=== PATIENT | male | born 1950 | race Caucasian/White ===

== ENCOUNTER 2018-12-23 12:51 | Outpatient (CLI) | payer OTHER, MEDICARE ==
[2018-12-23 14:37] LABS: #Basophils 0.1 thou/uL (0.0-0.2); #Eosinphils 0.1 thou/uL (0.0-0.7); #Lymphocytes 2.9 thou/uL (1.20-3.40); #Monocytes 0.7 thou/uL (0.11-0.59); #Neutrophils 4.4 thou/uL (1.40-6.50); %Basophils 0.8 % (0.0-1.0); %Eosinophils 1.3 % (0.0-10.0); %Monocytes 8.1 % (0.0-10.0); %Neutrophils 53.7 % (42.0-75.0); Hemoglobin 15.7 g/dL (14.0-18.0); Mean Corpuscular HGB CONC 34.3 g/dL (32.0-36.0); Mean Corpuscular Hemoglobin 30.5 pg (27.0-31.0); Mean Corpuscular Volume 89.1 fL (78.0-98.0); Mean Platelet Volume 7.7 fL (7.4-10.4); Platelet Count 236 thou/uL (130-400); RBC Distribution Width 12.1 % (11.5-14.5); Red Blood Cell (RBC) Count 5.14 mill/uL (4.70-6.10); White Blood Cell (WBC) Count 8.1 thou/uL (4.8-10.8)
[2018-12-23 14:43] LABS: Prothrombin Time 13.5 SEC (12.0-14.7)
[2018-12-23 14:50] LABS: Bacteria/HPF None Seen HPF (None Seen); Bilirubin Negative (Negative); Blood, Urine Negative (Negative); Clarity Clear (Clear); Glucose, Urine (Dipstick) Normal (Negative); Leukocyte Negative Leu/uL (Negative); Nitrite Negative (Negative); Protein, Urine (Dipstick) Negative (Neg-Trace); RBC/HPF 0-3 HPF (0-3); Squamous Epithelial None Seen HPF (0-3); Urobilinogen Normal mg/dL (Less than 2); WBC/HPF 0-3 HPF (0-3)
[2018-12-23 15:00] LABS: Anion Gap 10 mmol/L (10-20); BUN (Urea Nitrogen) 16 mg/dL (8.4-25.7); Calc. Creatinine Clearance 0 mL/min (70-130); Calcium 9.7 mg/dL (7.8-10.44); Carbon Dioxide 29 mmol/L (23-31); Chloride 101 mmol/L (98-107); Estimated GFR-MDRD Greater than 90; Glucose 109 mg/dL (80-115); Potassium 3.8 mmol/L (3.5-5.1); Sodium 136 mmol/L (136-145)
== END 2018-12-23 12:52 | disposition home or self-care (01) ==
LOC: LABBT 12:51
PROVIDERS: ATTEND Orthopaedic Surgery
DX: Z01.818 Encounter for other preprocedural examination (principal); M17.0 Bilateral primary osteoarthritis of knee
CPT/HCPCS: 80048; 81001; 85025; 85610; 87081; 93005; 93010

== ENCOUNTER 2018-12-23 14:30 | Inpatient (IN) | payer OTHER, MEDICARE ==
[2018-12-23 13:17] VITALS: BMI 32.1
[2019-01-04] MEDS ORDERED: Tranexamic Acid 1,000 MG/10 ML VIAL ONE (07:25)
[2019-01-04] MEDS ORDERED: Sodium Chloride 0.9% 100 ML ONE (07:25)
[2019-01-04] MEDS ORDERED: Midazolam HCl 2 mg/2 ml Vial ONE (07:33)
[2019-01-04] MEDS ORDERED: Fentanyl 100 MCG/2 ML VIAL ONE (07:33)
[2019-01-04] MEDS ORDERED: Vancomycin HCl 1.5 GM in Sodium Chloride 0.9% 250 ML 300 ML IVPB SCH (07:45)
[2019-01-04] MEDS ORDERED: Acetaminophen 500 MG TAB PO PRN (07:50)
[2019-01-04] MEDS ORDERED: Ondansetron PF 4 MG/2 ML Vial IVP PRN ×2 (08:00→08:56)
[2019-01-04] MEDS ORDERED: Promethazine HCl 25 MG SUPP PR PRN (08:00)
[2019-01-04] MEDS ORDERED: diphenhydrAMINE 50 MG/ML VIAL IVP PRN (08:00)
[2019-01-04] MEDS ORDERED: HYDROcodone/Acetaminophen 5/325 mg Tablet PO PRN (08:00)
[2019-01-04] MEDS ORDERED: diphenhydrAMINE 25 MG CAP PO PRN ×2 (08:00→08:56)
[2019-01-04] MEDS ORDERED: Hydrocerin (Eucerin) Cream 120 gm Jar TOP PRN (08:00)
[2019-01-04] MEDS ORDERED: fentaNYL Citrate/PF 500 MCG, Bupivacaine 10 ML in Sodium Chloride 0.9% 80 ML EPIDURAL SCH (08:00)
[2019-01-04] MEDS ORDERED: Zolpidem Tartrate 5 MG TAB PO PRN ×2 (08:00→08:56)
[2019-01-04] MEDS ORDERED: traMADol HCl 50 MG TAB PO PRN (08:00)
[2019-01-04] MEDS ORDERED: Naloxone HCl 0.4 mg/ml Vial IVP PRN (08:00)
[2019-01-04] MEDS ORDERED: Bupivacaine 0.25% 10 ML VIAL EPIDURAL PRN (08:00)
[2019-01-04] MEDS ORDERED: Promethazine HCl 25 MG/ML VIAL IM PRN ×2 (08:00→08:56)
[2019-01-04] MEDS ORDERED: Naloxone HCl 0.4 mg/ml Vial IV PRN (08:00)
[2019-01-04] MEDS ORDERED: diphenhydrAMINE 50 MG/ML VIAL IM PRN (08:00)
[2019-01-04] MEDS ORDERED: HYDROcodone/Acetaminophen 10/325 mg Tablet PO PRN ×2 (08:56)
[2019-01-04] MEDS ORDERED: Acetaminophen 325 MG TAB PO PRN (08:56)
[2019-01-04] MEDS ORDERED: Aspirin 81 mg Enteric Coated Tablet PO SCH (09:00)
[2019-01-04] MEDS ORDERED: ALPRAZolam 0.5 MG TAB PO SCH (09:00)
[2019-01-04] MEDS ORDERED: Ropivacaine 0.2% HCl/PF 20 ML ONE (09:27)
--- NOTE | 2019-01-04 13:15 | RAD ---
XR Knee Lt 2 View History: Total knee postop Comparison: None. Findings: Satisfactory postoperative appearance left total knee arthroplasty and patellar resurfacing . Expected postoperative gas and edema. Impression: Satisfactory postoperative appearance.
--- NOTE | 2019-01-04 13:16 | RAD ---
XR Knee Rt 2 View History: Postop total knee Comparison: None. Findings: Satisfactory appearance right total knee arthroplasty and patellar resurfacing. Expected po stoperative gas and edema. Advanced degenerative disease proximal tibiofibular joint. Impression: Satisfactory postoperative appearance.
--- NOTE | 2019-01-04 14:47 | OP ---
DATE OF PROCEDURE: 01/04/2019 PREOPERATIVE DIAGNOSIS: End-stage tricompartmental osteoarthritis, bilateral knees. POSTOPERATIVE DIAGNOSIS: End-stage tricompartmental osteoarthritis, bilateral knees. PROCEDURE PERFORMED: Bilateral total knee arthroplasties. WAFER FABRICATION TECHNICIAN: Yobani Cummins PA-C ANESTHESIA: General via LMA augmented with indwelling epidural. COMPONENTS USED: [employer] triathlon size 5 cruciate sparing cemented femoral component with a size 5 cemented primary tibial base plate, 9 mm polyethylene fixed bearing insert and a 35 patellar button. That is for the right side. For the left side, size 5 cemented cruciate sparing femoral component with a size 5 cemented primary tibial base plate, 9 mm polyethylene fixed bearing insert and a 35 patella button. TOURNIQUET TIME: Right knee was 58 minutes. Left knee 71 minutes. FINDINGS: Bilateral end-stage severe degenerative tricompartmental disease [id number] arthrosis, periarticular osteophyte formation, large serous effusion, hypertrophic synovium and bilateral changes consistent with degenerative genu varum. INPUT: 1400 mL crystalloid. OUTPUT: 400 mL of morgan urine. ESTIMATED BLOOD LOSS: 150 per knee, a total of 300. DRAINS: None. SPECIMENS: None. COMPLICATIONS: None. COUNTS: Correct. INDICATIONS FOR SURGERY: Emily is a 68-year-old white male who has had progressive bilateral knee pain and problem with standing and walking for the last 5-7 years. He has failed conservative management and elected to proceed with total knee arthroplasty as definitive treatment of his pain. DESCRIPTION OF PROCEDURE: After informed consent was obtained in the preoperative holding area, the patient was taken to the operative suite where general anesthesia was induced. Once adequate level of general anesthesia was obtained, the patient was positioned and a well-padded tourniquet was placed around the right proximal thigh. The right lower extremity was then prepped and draped in the usual sterile fashion. Prior to exsanguination, a time-out was called and all members of the surgical team agreed upon site, surgeon, and patient. The extremity was then exsanguinated and the tourniquet was raised. A midline longitudinal incision was then made directly over the patella extending 2 fingerbreadths above the superior pole of the patella and 2 fingerbreadths inferior to the inferior patellar pole of the patella. Deeper subcutaneous layers were dissected sharply and local bleeding was controlled with Bovie electrocautery. A quad tendon longitudinal split was then made sharply and a median parapatellar arthrotomy was carried out both sharp and with Bovie electrocautery, carried down to 1 fingerbreadth medial to the tibial tubercle. The knee was then placed into flexion and the patella was everted nicely, and a copious fat pad ectomy was performed allowing for greater exposure of the tibia. The computer-assisted distal femoral fiducial was then placed and pinned firmly, and the distal femoral cutting guide was pinned firmly into place. The oscillating saw was then used to remove the appropriate amount of bone. The 4-in-1 cutting block was then placed on the distal femur and the oscillating saw was used to remove the appropriate amount of bone off the anterior, posterior, and chamfer cuts. After completion of bone cuts, the anterior cruciate ligament was resected sharply and the posterior cruciate ligament retractor was placed and the tibia was subluxed for better exposure. Partial meniscectomies were carried out, and the tibial computer-assisted fiducial was pinned, and the cutting guide was placed. Oscillating saw was then used to remove the bone, with Hohmann retractors used to take care and protect the collateral ligaments. After the tibial resection was performed, a laminar labor employment associate was placed in between the freshened bone cuts. The knee placed at 90 degrees and further bilateral meniscectomies were carried out, and the curved osteotome and curettage were used to remove any excess bone spurs in the posterior compartment. The trial femoral component, tibial baseplate were placed with the appropriate polyethylene trial insert with an appropriate polyethylene spacer and patellar button. The knee was taken through full range of motion with flexion and extension from 0 to 90 degrees and patellar broach squarely in the trochlea without any squinting or subluxation noted. The knee was also stable to varus and valgus stressing at 0, 15, 45, and 90 degrees of flexion. The drawer was negative. All trial components were then removed and the keel punch was used to provide the appropriate defect in the tibia with a mallet. The freshened bone cuts were copiously irrigated with pulsatile lavage of about 1.5 L to remove all excess debris. The freshened bone cuts were then dried with suction and lap sponge. The knee was placed in flexion and retractors were placed to provide access to all bone cuts. Tobramycin-impregnated methyl methacrylate cement was then placed on the freshened bone cuts and implants which were malleted firmly into place. Curettage and Dennison elevators were used to remove any excess bone cement. The knee was placed into full extension and the patellar button was placed under compression, and the cement was allowed to cure. Once completed, the components were again taken through full range of motion and copious irrigation of the knee was carried out with another liter of normal saline. All components were inspected fully with full range of motion and varus and valgus stressing. There was no laxity noted and full extension was observed clinically. Primary closure was accomplished with #2 interrupted Vicryl stitch of the arthrotomy defect. This was oversewn with a #2 running Quill barbed stitch. The gravitational platelet system was then injected into the arthrotomy prior to closure. The subcutaneous layer was then closed with a running 0 barbed Monocryl stitch and skin closure accomplished with a running subcuticular 3-0 Monocryl barbed Quill stitch and augmented with cement on the skin. Tourniquet was lowered. Good spontaneous return of distal pulses was noted clinically and a sterile dressing was applied to the incision. The procedure was terminated without any complications. The patient was awakened in the operative suite and the patient was taken to the recovery room in stable condition. After informed consent was obtained in the preoperative holding area, the patient was taken to the operative suite where general anesthesia was induced. Once adequate level of general anesthesia was obtained, the patient was positioned and a well-padded tourniquet was placed around the left proximal thigh. The left lower extremity was then prepped and draped in the usual sterile fashion. Prior to exsanguination, a time-out was called and all members of the surgical team agreed upon site, surgeon, and patient. The extremity was then exsanguinated and the tourniquet was raised. A midline longitudinal incision was then made directly over the patella extending 2 fingerbreadths above the superior pole of the patella and 2 fingerbreadths inferior to the inferior patellar pole of the patella. Deeper subcutaneous layers were dissected sharply and local bleeding was controlled with Bovie electrocautery. A quad tendon longitudinal split was then made sharply and a median parapatellar arthrotomy was carried out both sharp and with Bovie electrocautery, carried down to 1 fingerbreadth medial to the tibial tubercle. The knee was then placed into flexion and the patella was everted nicely, and a copious fat pad ectomy was performed allowing for greater exposure of the tibia. The computer-assisted distal femoral fiducial was then placed and pinned firmly, and the distal femoral cutting guide was pinned firmly into place. The oscillating saw was then used to remove the appropriate amount of bone. The 4-in-1 cutting block was then placed on the distal femur and the oscillating saw was used to remove the appropriate amount of bone off the anterior, posterior, and chamfer cuts. After completion of bone cuts, the anterior cruciate ligament was resected sharply and the posterior cruciate ligament retractor was placed and the tibia was subluxed for better exposure. Partial meniscectomies were carried out, and the tibial computer-assisted fiducial was pinned, and the cutting guide was placed. Oscillating saw was then used to remove the bone, with Hohmann retractors used to take care and protect the collateral ligaments. After the tibial resection was performed, a laminar labor employment associate was placed in between the freshened bone cuts. The knee placed at 90 degrees and further bilateral meniscectomies were carried out, and the curved osteotome and curettage were used to remove any excess bone spurs in the posterior compartment. The trial femoral component, tibial baseplate were placed with the appropriate polyethylene trial insert with an appropriate polyethylene spacer and patellar button. The knee was taken through full range of motion with flexion and extension from 0 to 90 degrees and patellar broach squarely in the trochlea without any squinting or subluxation noted. The knee was also stable to varus and valgus stressing at 0, 15, 45, and 90 degrees of flexion. The drawer was negative. All trial components were then removed and the keel punch was used to provide the appropriate defect in the tibia with a mallet. The freshened bone cuts were copiously irrigated with pulsatile lavage of about 1.5 L to remove all excess debris. The freshened bone cuts were then dried with suction and lap sponge. The knee was placed in flexion and retractors were placed to provide access to all bone cuts. Tobramycin-impregnated methyl methacrylate cement was then placed on the freshened bone cuts and implants which were malleted firmly into place. Curettage and Dennison elevators were used to remove any excess bone cement. The knee was placed into full extension and the patellar button was placed under compression, and the cement was allowed to cure. Once completed, the components were again taken through full range of motion and copious irrigation of the knee was carried out with another liter of normal saline. All components were inspected fully with full range of motion and varus and valgus stressing. There was no laxity noted and full extension was observed clinically. Primary closure was accomplished with #2 interrupted Vicryl stitch of the arthrotomy defect. This was oversewn with a #2 running Quill barbed stitch. The gravitational platelet system was then injected into the arthrotomy prior to closure. The subcutaneous layer was then closed with a running 0 barbed Monocryl stitch and skin closure accomplished with a running subcuticular 3-0 Monocryl barbed Quill stitch and augmented with cement on the skin. Tourniquet was lowered. Good spontaneous return of distal pulses was noted clinically and a sterile dressing was applied to the incision. The procedure was terminated without any complications. The patient was awakened in the operative suite and the patient was taken to the recovery room in stable condition. Job ID: [id number]
[2019-01-04] MEDS: Lisinopril/Hydrochlorothiazide 20/25 mg Tablet PO SCH (15:43)
[2019-01-04] MEDS: Aspirin 81 mg Enteric Coated Tablet PO SCH ×2 (15:43→20:32)
[2019-01-04] MEDS: Ketorolac Tromethamine 30 MG/ML VIAL IVP SCH ×3 (15:43→23:31)
[2019-01-04] MEDS: Escitalopram Oxalate 20 mg Tablet PO SCH (15:43)
[2019-01-04] MEDS: Sodium Chloride 0.9% 1,000 ML IV SCH ×2 (15:43→23:32)
[2019-01-04] MEDS: CEFAZOLIN 2 GM in Premix Bag 1 BAG IVPB SCH ×2 (16:34→23:31)
[2019-01-04] MEDS: HYDROcodone/Acetaminophen 5/325 mg Tablet PO PRN (16:34)
[2019-01-04] MEDS: Vit A,C & E/Lutein/Minerals Tablet PO SCH ×2 (17:05→20:32)
[2019-01-04] MEDS ORDERED: ePHEDrine 50 MG/ML VIAL ONE (20:01)
[2019-01-04] MEDS ORDERED: Lidocaine 1% PF 5 ML VIAL ONE (20:01)
[2019-01-04] MEDS ORDERED: Ketorolac Tromethamine 30 MG/ML VIAL ONE (20:01)
[2019-01-04] MEDS ORDERED: PROPOFOL 200 MG/20 ML VIAL ONE (20:01)
[2019-01-04] MEDS ORDERED: Ondansetron PF 4 MG/2 ML Vial ONE (20:01)
[2019-01-04] MEDS: Lisinopril 10 MG TAB PO SCH (20:31)
[2019-01-04] MEDS: Nebivolol HCl 5 MG TAB PO SCH (20:32)
[2019-01-04] MEDS: Atorvastatin Calcium 40 MG TAB PO SCH (20:32)
[2019-01-04] MEDS ORDERED: Non-Formulary Item 1 EACH (Potassium [Potassium] 99 MG) PO SCH (21:00)
[2019-01-05 04:54] LABS: Hemoglobin 11.4 g/dL (14.0-18.0); Mean Corpuscular HGB CONC 34.3 g/dL (32.0-36.0); Mean Corpuscular Hemoglobin 30.6 pg (27.0-31.0); Mean Corpuscular Volume 89.3 fL (78.0-98.0); Mean Platelet Volume 7.5 fL (7.4-10.4); Platelet Count 183 thou/uL (130-400); Red Blood Cell (RBC) Count 3.73 mill/uL (4.70-6.10); White Blood Cell (WBC) Count 9.2 thou/uL (4.8-10.8)
[2019-01-05] MEDS: Ketorolac Tromethamine 30 MG/ML VIAL IVP SCH ×4 (05:39→23:53)
[2019-01-05] MEDS: Sodium Chloride 0.9% 1,000 ML IV SCH ×2 (06:13→17:47)
[2019-01-05] MEDS: Lisinopril/Hydrochlorothiazide 20/25 mg Tablet PO SCH (08:41)
[2019-01-05] MEDS: Senokot S 8.6-50 MG TAB PO SCH ×2 (08:42→20:23)
[2019-01-05] MEDS: Escitalopram Oxalate 20 mg Tablet PO SCH (08:42)
[2019-01-05] MEDS: Vit A,C & E/Lutein/Minerals Tablet PO SCH ×2 (08:42→20:23)
[2019-01-05] MEDS: Aspirin 81 mg Enteric Coated Tablet PO SCH ×2 (08:43→20:23)
[2019-01-05] MEDS: Ferrous Gluconate 324 MG TAB PO SCH ×2 (08:43→17:45)
[2019-01-05] MEDS: Multivitamin W/ Minerals 1 TAB PO SCH (08:43)
--- NOTE | 2019-01-05 10:09 | PRG ---
DATE OF SERVICE: 01/05/2019 SUBJECTIVE: Pb is a 68-year-old male, who is postoperative day 1 from a bilateral total knee arthroplasty. He is doing well this morning. His epidural is working. He is comfortable, and Toradol helped him significantly with pain. OBJECTIVE: VITAL SIGNS: Temperature 98.6, pulse 90, respiratory rate 18, blood pressure 132/69. GENERAL: He is alert and oriented to person, place, time, and situation. Grossly nonfocal. Responsive and appropriate with examiner. Appears comfortable. Carries on and converses easily. EXTREMITIES: Visual inspection of both lower extremities demonstrates no strikethrough at the incisions. No erythema, and he is neurovascularly intact in both lower extremities with dorsiflexion, inversion, eversion, and good digital excursion. LABORATORY DATA: Hemoglobin and hematocrit 11.4 and 33.3. IMPRESSION: A 68-year-old male, postoperative day 1, bilateral total knee arthroplasty, doing very well and comfortable. PLAN: Continue current care. Initiate physical therapy. Job ID: [id number]
[2019-01-05] MEDS: HYDROcodone/Acetaminophen 5/325 mg Tablet PO PRN (10:15)
[2019-01-05] MEDS ORDERED: Acetaminophen 325 MG TAB PO PRN (15:29)
[2019-01-05] MEDS ORDERED: Acetaminophen 650 MG Suppository PR PRN (15:29)
[2019-01-05] MEDS ORDERED: Fentanyl 100 MCG/2 ML VIAL SLOW IVP PRN (15:39)
[2019-01-05] MEDS ORDERED: HYDROcodone/Acetaminophen 5/325 mg Tablet PO PRN (15:41)
--- NOTE | 2019-01-05 16:34 | CON ---
DATE OF CONSULTATION: PRIMARY CARE PHYSICIAN: Dr. Hollis Camacho. REASON FOR CONSULTATION: Medical management. HISTORY OF PRESENT ILLNESS: Mr. Magallanes is a pleasant 68-year-old gentleman, who is status post bilateral knee replacement and has been referred for medical management, with a history of hypertension, hyperlipidemia, irritable bowel disease, and obesity. The patient states he was just walking in the halls with physical therapy and was able to walk a longer distance than he did this morning. He states he is doing well and is without any significant pain. Pain is being very well controlled. He does report some mild itching, however, refused Benadryl due to it causing drowsiness. The patient states the itching is tolerable. He has not noted any rash. He has been tolerating oral intake without any nausea or vomiting. Denies having any abdominal pain. He has been passing flatus, but has not had a bowel movement since Thursday evening. He states he does suffer from constipation. Denies having any chest pain, palpitations, or shortness of breath. No headaches or dizziness. Overall, he is feeling well without any major complaints. The patient states he underwent a treadmill stress test with Dr. Barajas prior to surgery and it was normal. Dr. Barajas is his regular inclusion manager. He was just recently started on antihypertensives less than 6 months ago. The patient again denies having any shortness of breath, but was given an incentive spirometer, given slightly reduced saturations of 92%. He does not have any known underlying lung conditions. REVIEW OF SYSTEMS: All other review of systems apart from those mentioned above in HPI are negative. PAST MEDICAL HISTORY: 1. Hypertension. 2. Hyperlipidemia. 3. Obesity. 4. Irritable bowel disease. PAST SURGICAL HISTORY: Bilateral knee replacement. SOCIAL HISTORY: The patient lives with his . He is fully independent. Denies any tobacco use, alcohol consumption, or illicit drug use. FAMILY HISTORY: Noncontributory. ALLERGIES: NO KNOWN DRUG ALLERGIES. CURRENT MEDICATIONS: 1. Xanax. 2. Aspirin. 3. Atorvastatin. 4. Lexapro. 5. Lisinopril. 6. Bystolic. 7. Potassium. 8. Multivitamin. PHYSICAL EXAMINATION: GENERAL: The patient appears well developed, well nourished, is in no acute distress. VITAL SIGNS: Temperature 98.3, pulse 92, respirations 14, O2 saturations 92% on room air, blood pressure 166/70. HEENT: Normocephalic and atraumatic. Pupils are equal, round, and reactive to light. Sclerae without icterus. Oropharynx is clear. NECK: Supple without lymphadenopathy. LUNGS: Clear to auscultation bilaterally without wheezes, rales, or rhonchi. CARDIAC: Regular rate and rhythm without audible murmurs, rubs, or gallops. ABDOMEN: Soft, nontender, nondistended. Normoactive bowel sounds present. EXTREMITIES: No lower leg swelling or edema. NEUROLOGIC: Alert and oriented x3. No neuro deficits. SKIN: Warm and dry. LABORATORY DATA: White count 9.2, hemoglobin 11.4, hematocrit 33.3, and platelets 183. IMAGING DATA: Knee x-ray, 01/04/2019. Satisfactory postoperative appearance following left total knee arthroplasty and patellar resurfacing with expected postoperative gas and edema involving the left knee. Right knee similar as the left knee. Advanced degenerative disease in proximal tibiofibular joint. IMPRESSION AND PLAN: Mr. Magallanes is a pleasant 68-year-old gentleman, who is status post bilateral knee arthroplasty, who has been referred for management of the following. 1. Hypertension. Currently, blood pressure is elevated at 166/70, however, he did just finished ambulating in the halls with physical therapy. Blood pressure was well controlled earlier today at 137/70. We will continue antihypertensives and monitor blood pressure. 2. Constipation. The patient has senna ordered already. He has no abdominal pain. No nausea or vomiting. Tolerating oral intake. 3. Pruritus. The patient is refusing Benadryl at present. States it is tolerable. Continue to monitor. Adjustments have been made to his epidural, which he hopes will improve the itching. 4. Gastrointestinal prophylaxis with famotidine. 5. Deep venous thrombosis prophylaxis with mechanical SCDs. 6. Code status, full. Surrogate decision maker is his , Diana Magallanes. 7. We will obtain a BMP today and repeat laboratory studies in the a.m. Thank you for this consultation. We will continue to follow the patient with you. Job ID: [id number]
[2019-01-05] MEDS: Bupivacaine 10 ML in Sodium Chloride 0.9% 90 ML EPIDURAL SCH (16:38)
[2019-01-05 16:43] LABS: Anion Gap 11 mmol/L (10-20); BUN (Urea Nitrogen) 17 mg/dL (8.4-25.7); Calc. Creatinine Clearance 111 mL/min (70-130); Calcium 8.4 mg/dL (7.8-10.44); Carbon Dioxide 28 mmol/L (23-31); Chloride 100 mmol/L (98-107); Estimated GFR-MDRD 77; Glucose 175 mg/dL (80-115); Potassium 3.6 mmol/L (3.5-5.1); Sodium 135 mmol/L (136-145)
[2019-01-05] MEDS: Acetaminophen 325 MG TAB PO SCH ×2 (17:46→23:52)
[2019-01-05] MEDS: Lisinopril 10 MG TAB PO SCH (20:22)
[2019-01-05] MEDS: Atorvastatin Calcium 40 MG TAB PO SCH (20:22)
[2019-01-05] MEDS: Nebivolol HCl 5 MG TAB PO SCH (20:22)
[2019-01-05] MEDS: traMADol HCl 50 MG TAB PO PRN (23:52)
[2019-01-06 05:23] LABS: #Eosinphils 0.2 thou/uL (0.0-0.7); #Lymphocytes 2.1 thou/uL (1.20-3.40); #Monocytes 0.9 thou/uL (0.11-0.59); #Neutrophils 5.9 thou/uL (1.40-6.50); %Basophils 0.2 % (0.0-1.0); %Eosinophils 2.3 % (0.0-10.0); %Lymphocytes 23.3 % (21.0-51.0); %Monocytes 10.1 % (0.0-10.0); %Neutrophils 64.2 % (42.0-75.0); Hemoglobin 10.9 g/dL (14.0-18.0); Mean Corpuscular HGB CONC 33.1 g/dL (32.0-36.0); Mean Corpuscular Hemoglobin 29.7 pg (27.0-31.0); Mean Corpuscular Volume 89.7 fL (78.0-98.0); Mean Platelet Volume 7.9 fL (7.4-10.4); Platelet Count 163 thou/uL (130-400); Red Blood Cell (RBC) Count 3.68 mill/uL (4.70-6.10); White Blood Cell (WBC) Count 9.1 thou/uL (4.8-10.8)
[2019-01-06] MEDS: Sodium Chloride 0.9% 1,000 ML IV SCH ×3 (05:23→10:41)
[2019-01-06] MEDS: Ketorolac Tromethamine 30 MG/ML VIAL IVP SCH (05:24)
[2019-01-06] MEDS: Acetaminophen 325 MG TAB PO SCH ×3 (05:24→17:59)
[2019-01-06] MEDS: Bupivacaine 10 ML in Sodium Chloride 0.9% 90 ML EPIDURAL SCH (05:25)
[2019-01-06 05:39] LABS: Anion Gap 12 mmol/L (10-20); BUN (Urea Nitrogen) 15 mg/dL (8.4-25.7); Calc. Creatinine Clearance 114 mL/min (70-130); Calcium 8.4 mg/dL (7.8-10.44); Carbon Dioxide 29 mmol/L (23-31); Chloride 100 mmol/L (98-107); Estimated GFR-MDRD 80; Glucose 139 mg/dL (80-115); Potassium 3.6 mmol/L (3.5-5.1); Sodium 137 mmol/L (136-145)
[2019-01-06] MEDS: Escitalopram Oxalate 20 mg Tablet PO SCH (09:22)
[2019-01-06] MEDS: Senokot S 8.6-50 MG TAB PO SCH ×2 (09:22→20:19)
[2019-01-06] MEDS: Aspirin 81 mg Enteric Coated Tablet PO SCH ×2 (09:22→20:19)
[2019-01-06] MEDS: Lisinopril/Hydrochlorothiazide 20/25 mg Tablet PO SCH (09:22)
[2019-01-06] MEDS: Ferrous Gluconate 324 MG TAB PO SCH ×2 (09:23→17:59)
[2019-01-06] MEDS: Multivitamin W/ Minerals 1 TAB PO SCH (09:23)
[2019-01-06] MEDS: traMADol HCl 50 MG TAB PO PRN (09:39)
[2019-01-06] MEDS: Vit A,C & E/Lutein/Minerals Tablet PO SCH ×2 (09:41→20:18)
[2019-01-06] MEDS ORDERED: HYDROcodone/Acetaminophen 10/325 mg Tablet PO PRN (12:03)
[2019-01-06] MEDS ORDERED: Acetaminophen 325 MG TAB PO PRN (12:04)
[2019-01-06] MEDS ORDERED: hydrALAZINE 20 MG/ML VIAL SLOW IVP PRN ×2 (18:39→18:57)
[2019-01-06] MEDS ORDERED: Polyethylene Glycol 3350 17 GM Packet PO PRN (18:53)
[2019-01-06] MEDS ORDERED: Lisinopril 10 MG TAB PO PRN (18:54)
[2019-01-06] MEDS: Nebivolol HCl 5 MG TAB PO SCH (20:18)
[2019-01-06] MEDS: Atorvastatin Calcium 40 MG TAB PO SCH (20:19)
[2019-01-06] MEDS: Lisinopril 10 MG TAB PO SCH (20:19)
[2019-01-07] MEDS: Acetaminophen 325 MG TAB PO SCH ×3 (00:48→14:27)
[2019-01-07 05:42] LABS: Hemoglobin 10.6 g/dL (14.0-18.0); Mean Corpuscular HGB CONC 33.5 g/dL (32.0-36.0); Mean Corpuscular Volume 89.5 fL (78.0-98.0); Mean Platelet Volume 7.4 fL (7.4-10.4); Platelet Count 177 thou/uL (130-400); RBC Distribution Width 11.7 % (11.5-14.5); Red Blood Cell (RBC) Count 3.54 mill/uL (4.70-6.10); White Blood Cell (WBC) Count 8.7 thou/uL (4.8-10.8)
[2019-01-07] MEDS: Vit A,C & E/Lutein/Minerals Tablet PO SCH (08:36)
[2019-01-07] MEDS: Aspirin 81 mg Enteric Coated Tablet PO SCH (08:36)
[2019-01-07] MEDS: Ferrous Gluconate 324 MG TAB PO SCH (08:36)
[2019-01-07] MEDS: Senokot S 8.6-50 MG TAB PO SCH (08:37)
[2019-01-07] MEDS: Multivitamin W/ Minerals 1 TAB PO SCH (08:37)
[2019-01-07] MEDS: Escitalopram Oxalate 20 mg Tablet PO SCH (08:37)
[2019-01-07] MEDS: Lisinopril/Hydrochlorothiazide 20/25 mg Tablet PO SCH (08:37)
[2019-01-07] MEDS: HYDROcodone/Acetaminophen 10/325 mg Tablet PO PRN ×2 (08:38→17:28)
--- NOTE | 2019-01-07 10:37 | PDOC.HOSPP ---
- Subjective Encounter Date: 01/06/19 Encounter Time: 19:00 Subjective: Patient seen and examined for med mngt. No CP/SOB. BP elevated per RN. Pain controlled. No new complaints. No overnight events - Objective Vital Signs & Weight: Vital Signs (12 hours) Temp Pulse Resp BP BP Pulse Ox 01/07/19 08:00 98.2 F 71 14 191/90 H 91 L 01/07/19 07:11 170/74 H 01/07/19 03:31 98.9 F 74 18 181/78 H 92 L 01/06/19 23:35 98.3 F 75 20 150/74 H 95 Weight Admit Weight 230 lb Weight 230 lb I&O: 01/06/19 01/07/19 01/08/19 06:59 06:59 06:59 Intake Total 2820 1920 Output Total 1200 1500 Balance 1620 420 Result Diagrams: 01/07/19 05:25 01/06/19 04:22 Hospitalist ROS - Review of Systems Respiratory: denies: cough, dry, shortness of breath, hemoptysis, SOB with excertion, pleuritic pain, sputum, wheezing, other Cardiovascular: denies: chest pain, palpitations, orthopnea, paroxysmal noc. dyspnea, edema, light headedness, other - Medication Medications: Active Medications Generic Name Dose Route Start Last Admin Trade Name Freq PRN Reason Stop Dose Admin Acetaminophen 650 mg 01/05/19 18:00 01/07/19 05:25 Tylenol PO 01/07/19 12:01 Not Given Q6HR ZURDO Hydrocodone Bitart/Acetaminophen 1 tab 01/06/19 12:03 01/07/19 08:38 Volga 10/325 PO 1 tab Q4H PRN Administration Pain (2-5) Hydrocodone Bitart/Acetaminophen 2 tab 01/06/19 12:03 01/06/19 13:26 Volga 10/325 PO 2 tab Q4H PRN Administration Pain (6-10) Aspirin 81 mg 01/04/19 09:00 01/07/19 08:36 Ecotrin PO 81 mg BID ZURDO Administration Atorvastatin Calcium 40 mg 01/04/19 21:00 01/06/19 20:19 Lipitor PO 40 mg QPM ZURDO Administration Escitalopram Oxalate 20 mg 01/04/19 09:00 01/07/19 08:37 Lexapro PO 20 mg QAM ZURDO Administration Ferrous Gluconate 324 mg 01/05/19 08:00 01/07/19 08:36 Fergon PO 324 mg BID-WM ZURDO Administration Lisinopril/HCTZ 1 tab 01/04/19 09:00 01/07/19 08:37 Prinizide 20-25 PO 1 tab QAM ZURDO Administration Iron/Minerals/Multivitamins 1 tab 01/05/19 09:00 01/07/19 08:37 Theragran M PO 1 tab DAILY ZURDO Administration Lisinopril 10 mg 01/04/19 21:00 01/06/19 20:19 Zestril PO 10 mg QPM ZURDO Administration Multivitamins/Minerals 2 tab 01/04/19 09:00 01/07/19 08:36 Ocuvite With Lutein PO 2 tab BID ZURDO Administration Nebivolol 10 mg 01/04/19 21:00 01/06/19 20:18 Bystolic PO 10 mg QPM ZURDO Administration Senna/Docusate Sodium 1 tab 01/06/19 21:00 01/07/19 08:37 Senokot S PO 1 tab BID ZURDO Administration - Exam General Appearance: NAD Neck: supple, no JVD Heart: RRR, no rubs Respiratory: CTAB, no ronchi Gastrointestinal: soft, non-tender, normal bowel sounds Extremities: no edema Hosp A/P - Plan plan discussed w/ family, DVT proph w/SCDs HTN - uncontrolled HLD CKD 2 Obesity BMI 32.1 IBS Plan: Cont home dose of Lisinopril with HCTZ Add extra PRN dose of Lisinopril Cont other meds Will add IV PRN meds if still elevated.
[2019-01-07 17:35] VITALS: BP 194/92; TEMP 98.7
== END 2019-01-07 18:45 | disposition home or self-care (01) | DRG 462 ==
LOC: SURG A 01-04 06:09
PROVIDERS: ADMIT Orthopaedic Surgery; ATTEND Orthopaedic Surgery
PROC: 0SRD0J9 Replacement of Left Knee Joint with Synthetic Substitute, Cemented, Open Approach (ICD-10-PCS; principal; 2019-01-04)
PROC: 0SRC0J9 Replacement of Right Knee Joint with Synthetic Substitute, Cemented, Open Approach (ICD-10-PCS; 2019-01-04)
DX: M17.0 Bilateral primary osteoarthritis of knee (principal); N18.2 Chronic kidney disease, stage 2 (mild); I12.9 Hypertensive chronic kidney disease with stage 1 through stage 4 chronic kidney disease, or unspecified chronic kidney disease; E78.5 Hyperlipidemia, unspecified; H35.30 Unspecified macular degeneration; J30.2 Other seasonal allergic rhinitis; F41.9 Anxiety disorder, unspecified; E66.9 Obesity, unspecified; F32.9 Major depressive disorder, single episode, unspecified; K58.1 Irritable bowel syndrome with constipation; Z79.899 Other long term (current) drug therapy; Z68.32 Body mass index [BMI] 32.0-32.9, adult
CPT/HCPCS: 36415; 80048; 85027; C1713; C1776; J0690; J1885; J2001; J2250; J2405; J2704; J2795; J3010; J3490

== ENCOUNTER 2023-07-28 07:20 | Outpatient (CLI) | payer MEDICARE ==
[2023-07-28] MEDS ORDERED: Iopamidol 370 76% 100 ML VIAL ONE (11:14)
== END 2023-07-28 07:21 | disposition home or self-care (01) ==
LOC: BICCT 07:20
PROVIDERS: ATTEND Internal Medicine
DX: C18.9 Malignant neoplasm of colon, unspecified (principal); R59.0 Localized enlarged lymph nodes; K63.89 Other specified diseases of intestine; K76.89 Other specified diseases of liver; M47.819 Spondylosis without myelopathy or radiculopathy, site unspecified
CPT/HCPCS: 74177; Q9967

== ENCOUNTER 2023-08-17 12:37 | Day surgery (SDC) | payer MEDICARE ==
[2023-08-14 12:33] VITALS: BMI 31.4
[~2023-08-17 12:37] MED LIST: Magnevist 469MG/ML 20 ML VIAL ONE
[2023-08-17] MEDS ORDERED: fentaNYL 50 mcg/mL 1 mL Vial ONE (13:28)
[2023-08-17] MEDS ORDERED: Ondansetron PF 4 MG/2 ML Vial ONE (13:28)
[2023-08-17] MEDS ORDERED: PROPOFOL 20 ML ONE (13:28)
[2023-08-17] MEDS ORDERED: Rocuronium Bromide 10 MG/ML (10ML VIAL) ONE (13:28)
[2023-08-17] MEDS ORDERED: SUGAMMADEX SODIUM 200 MG/2 ML VIAL ONE (13:28)
[2023-08-17] MEDS ORDERED: Lidocaine 1% PF 5 ML VIAL ONE (13:28)
[2023-08-17] MEDS ORDERED: Dexamethasone 4 mg/ml Vial ONE (13:28)
[2023-08-17] MEDS ORDERED: PHENYLEPHRINE-NS 100 MCG/ML 10 ML SYRINGE ONE (13:29)
== END 2023-08-17 16:29 | disposition home or self-care (01) ==
LOC: MRI 12:37
PROVIDERS: ATTEND Internal Medicine
DX: C18.2 Malignant neoplasm of ascending colon (principal); K76.89 Other specified diseases of liver; I10 Essential (primary) hypertension; E11.9 Type 2 diabetes mellitus without complications; E78.2 Mixed hyperlipidemia; F32.A Depression, unspecified; F41.9 Anxiety disorder, unspecified; Z79.84 Long term (current) use of oral hypoglycemic drugs; Z79.899 Other long term (current) drug therapy
CPT/HCPCS: 74183; 93005; J1100; J2405; J2704; J3010; 93010

== ENCOUNTER 2023-08-29 10:50 | Inpatient (IN) | payer MEDICARE ==
[2023-08-29 12:04] LABS: #Basophils 0.03 10x3/uL (0.0-0.2); #Eosinphils Less than 0.03 10x3/uL (0.0-0.7); %Basophils 0.1 % (0.0-1.0); %Lymphocytes 8.9 % (21.0-51.0); %Monocytes 7.7 % (0.0-10.0); Hematocrit 39.6 % (42.0-52.0); Hemoglobin 12.6 g/dL (14.0-18.0); Mean Corpuscular HGB CONC 31.8 g/dL (32.0-36.0); Mean Corpuscular Volume 75.6 fL (78.0-98.0); Mean Platelet Volume 9.1 fL (7.4-10.4); Platelet Count 337 10x3/uL (130-400); RBC Distribution Width 15.9 % (11.5-14.5); Red Blood Cell (RBC) Count 5.24 mill/uL (4.70-6.10)
[2023-08-29] MEDS ORDERED: Ondansetron PF 4 MG/2 ML Vial ONE (12:06)
[2023-08-29 12:20] LABS: ALT (SGPT) 24 U/L (8-55); AST (SGOT) 20 U/L (5-34); Alkaline Phosphatase 86 U/L (40-110); Anion Gap 20 mmol/L (10-20); BUN (Urea Nitrogen) 26 mg/dL (8.4-25.7); Bilirubin, Total 0.8 mg/dL (0.2-1.2); Calc. Creatinine Clearance 0 mL/min (70-130); Calcium 9.8 mg/dL (7.8-10.44); Carbon Dioxide 21 mmol/L (23-31); Chloride 103 mmol/L (98-107); Estimated GFR 76; Globulin 3.5 g/dL (2.4-3.5); Glucose 225 mg/dL (80-115); Potassium 3.6 mmol/L (3.5-5.1); Protein, Total 7.5 g/dL (5.8-8.1); Sodium 140 mmol/L (136-145)
[2023-08-29] MEDS ORDERED: Iopamidol-370 76% 500 ML MDV (1 ML CHARGE) ONE (12:36)
[2023-08-29 12:38] LABS: Bacteria/HPF None Seen HPF (None Seen); Bilirubin Negative (Negative); Blood, Urine Negative (Negative); CAUTI Indications for Culture Dysuria,urgency,freq; Clarity Clear (Clear); Glucose, Urine (Dipstick) 500 mg/dL (Negative); Ketone, Urine 10 mg/dL (Negative); Leukocyte Negative Leu/uL (Negative); Nitrite Negative (Negative); Protein, Urine (Dipstick) 30 mg/dL (Neg-Trace); RBC/HPF 0-3 HPF (0-3); Specific Gravity, Urine 1.026 (1.002-1.036); Squamous Epithelial 0-3 HPF (0-3); Urobilinogen Normal mg/dL (Less than 2); WBC/HPF 0-3 HPF (0-3); pH, Urine 5.5 (5.0-9.0)
[2023-08-29 12:39] LABS: Urine Culture Reflex No No
[2023-08-29] MEDS: Promethazine HCl 6.25 MG in Sodium Chloride 0.9% 50 ML IVPB SCH (19:40)
[2023-08-29 20:53] VITALS: BMI 29.2
[2023-08-29] MEDS ORDERED: Dextrose 50% Abboject 50 ML SYRINGE SLOW IVP PRN (22:59)
[2023-08-29] MEDS ORDERED: Glucagon 1 MG/ML KIT IM PRN (22:59)
[2023-08-29] MEDS ORDERED: Dextrose 5% in Water 1,000 ML IV PRN (22:59)
[2023-08-29] MEDS ORDERED: Morphine 2 MG/ML VIAL SLOW IVP PRN (22:59)
[2023-08-29] MEDS: Ondansetron PF 4 MG/2 ML Vial IVP PRN (23:00)
[2023-08-29] MEDS: Lactated Ringer's 1,000 ML IV SCH (23:17)
[2023-08-30] MEDS: Promethazine HCl 25 MG/ML VIAL IM PRN (00:48)
[2023-08-30] MEDS: hydrALAZINE 20 MG/ML VIAL SLOW IVP PRN (00:49)
[2023-08-30] MEDS: TETANUS, DIPHTHERIA TOX,ADULT (TDVAX) 0.5 ML VIAL IM ONE (00:57)
[2023-08-30] MEDS: Famotidine 20 MG TAB PO SCH (08:36)
[2023-08-30] MEDS: Lorazepam 2 MG/ML VIAL SLOW IVP PRN (23:44)
[2023-08-31 08:52] LABS: #Basophils Less than 0.03 10x3/uL (0.0-0.2); #Eosinphils Less than 0.03 10x3/uL (0.0-0.7); %Basophils 0.1 % (0.0-1.0); %Eosinophils 0.1 % (0.0-10.0); %Lymphocytes 15.9 % (21.0-51.0); %Neutrophils 74.5 % (42.0-75.0); Hematocrit 34.5 % (42.0-52.0); Hemoglobin 10.7 g/dL (14.0-18.0); Mean Corpuscular Hemoglobin 24.6 pg (27.0-31.0); Mean Corpuscular Volume 79.3 fL (78.0-98.0); Mean Platelet Volume 9.6 fL (7.4-10.4); Platelet Count 213 10x3/uL (130-400); RBC Distribution Width 15.9 % (11.5-14.5); Red Blood Cell (RBC) Count 4.35 mill/uL (4.70-6.10)
[2023-08-31 09:08] LABS: Anion Gap 16 mmol/L (10-20); BUN (Urea Nitrogen) 21 mg/dL (8.4-25.7); Calc. Creatinine Clearance 123 mL/min (70-130); Calcium 8.7 mg/dL (7.8-10.44); Carbon Dioxide 23 mmol/L (23-31); Chloride 105 mmol/L (98-107); Estimated GFR 97; Glucose 171 mg/dL (80-115); Potassium 3.1 mmol/L (3.5-5.1); Sodium 141 mmol/L (136-145)
[2023-08-31] MEDS: Potassium Chloride 20 MEQ in Premix 1 BAG IVPB SCH (11:01)
[2023-08-31 12:09] LABS: Phosphorus 2.4 mg/dL (2.3-4.7)
[2023-08-31] MEDS ORDERED: MD-Gastroview 120 ML BOT ONE (13:19)
[2023-08-31 15:36] VITALS: BMI 29.2
[2023-08-31] MEDS: Benzocaine 20% Spray 60 ML CAN PO SCH (18:25)
[2023-09-01 05:43] LABS: #Basophils Less than 0.03 10x3/uL (0.0-0.2); #Eosinphils Less than 0.03 10x3/uL (0.0-0.7); %Basophils 0.1 % (0.0-1.0); %Lymphocytes 10.3 % (21.0-51.0); %Monocytes 6.2 % (0.0-10.0); Hematocrit 37.6 % (42.0-52.0); Hemoglobin 11.5 g/dL (14.0-18.0); Mean Corpuscular HGB CONC 30.6 g/dL (32.0-36.0); Mean Corpuscular Hemoglobin 24.1 pg (27.0-31.0); Mean Corpuscular Volume 78.7 fL (78.0-98.0); Mean Platelet Volume 10.2 fL (7.4-10.4); Platelet Count 232 10x3/uL (130-400); RBC Distribution Width 16.6 % (11.5-14.5); Red Blood Cell (RBC) Count 4.78 mill/uL (4.70-6.10)
[2023-09-01 05:53] LABS: Anion Gap 19 mmol/L (10-20); BUN (Urea Nitrogen) 22 mg/dL (8.4-25.7); Calc. Creatinine Clearance 116 mL/min (70-130); Calcium 9.3 mg/dL (7.8-10.44); Carbon Dioxide 22 mmol/L (23-31); Chloride 107 mmol/L (98-107); Estimated GFR 95; Glucose 194 mg/dL (80-115); Potassium 3.5 mmol/L (3.5-5.1); Sodium 144 mmol/L (136-145)
[2023-09-01] MEDS: Benzocaine/Menthol 1 LOZ LOZ PO PRN (11:32)
[2023-09-01] MEDS: Insulin Regular, Human 100 UNIT/ML 10 ML VIAL SC PRN (12:58)
[2023-09-01] MEDS ORDERED: traMADol HCl 50 MG TAB PO PRN (20:13)
[2023-09-01] MEDS: Ibuprofen 600 MG TAB PO SCH (21:18)
[2023-09-01] MEDS: Lisinopril 20 MG TAB PO SCH (22:02)
[2023-09-01] MEDS: Acetaminophen 325 MG TAB PO SCH (23:55)
[2023-09-02 05:48] LABS: #Basophils Less than 0.03 10x3/uL (0.0-0.2); #Eosinphils Less than 0.03 10x3/uL (0.0-0.7); %Basophils 0.1 % (0.0-1.0); %Eosinophils 0.2 % (0.0-10.0); %Lymphocytes 20.1 % (21.0-51.0); %Monocytes 10.8 % (0.0-10.0); %Neutrophils 68.6 % (42.0-75.0); Hematocrit 36.3 % (42.0-52.0); Hemoglobin 11.2 g/dL (14.0-18.0); Mean Corpuscular HGB CONC 30.9 g/dL (32.0-36.0); Mean Corpuscular Hemoglobin 24.6 pg (27.0-31.0); Mean Corpuscular Volume 79.8 fL (78.0-98.0); Mean Platelet Volume 10.1 fL (7.4-10.4); Platelet Count 229 10x3/uL (130-400); RBC Distribution Width 16.7 % (11.5-14.5); Red Blood Cell (RBC) Count 4.55 mill/uL (4.70-6.10)
[2023-09-02 06:30] LABS: Anion Gap 15 mmol/L (10-20); BUN (Urea Nitrogen) 20 mg/dL (8.4-25.7); Calc. Creatinine Clearance 87 mL/min (70-130); Carbon Dioxide 21 mmol/L (23-31); Chloride 106 mmol/L (98-107); Estimated GFR 75; Glucose 170 mg/dL (80-115); Potassium 3.2 mmol/L (3.5-5.1); Sodium 139 mmol/L (136-145)
[2023-09-02] MEDS ORDERED: Electrolyte Replacement Protocol FS PRN (07:30)
[2023-09-02 08:22] LABS: Magnesium 2.1 mg/dL (1.6-2.6)
[2023-09-02] MEDS: Potassium Chloride 20 MEQ TAB PO SCH (09:08)
[2023-09-02] MEDS: Enoxaparin 40 MG (0.4 mL) SYRINGE SC SCH (09:08)
[2023-09-02] MEDS: Amlodipine 10 MG TAB PO SCH (09:11)
[2023-09-02] MEDS: Lisinopril 20 MG TAB PO SCH (09:11)
[2023-09-02 13:18] VITALS: BP 170/84
[2023-09-02 16:39] VITALS: TEMP 98.2
== END 2023-09-02 16:46 | disposition home or self-care (01) | DRG 389 ==
LOC: ERS 10:50 → SURG A 16:59
PROVIDERS: ADMIT Student in an Organized Health Care Education/Training Program; ATTEND Student in an Organized Health Care Education/Training Program
DX: K56.609 Unspecified intestinal obstruction, unspecified as to partial versus complete obstruction (principal); C18.2 Malignant neoplasm of ascending colon; C19 Malignant neoplasm of rectosigmoid junction; E87.6 Hypokalemia; E86.0 Dehydration; I11.0 Hypertensive heart disease with heart failure; E11.9 Type 2 diabetes mellitus without complications; F41.9 Anxiety disorder, unspecified; F32.A Depression, unspecified; Z92.21 Personal history of antineoplastic chemotherapy
CPT/HCPCS: 36415; 36416; 74018; 74177; 74250; 80048; 80053; 81001; 82728; 83540; 83550; 83605; 83690; 83735; 84100; 85025; 87040; 96361; 96365; 96375; J0360; J1650; J1815; J2060; J2405; J2550; J3480; J7120; Q9963; Q9967

== ENCOUNTER 2023-09-15 13:22 | Inpatient (IN) | payer MEDICARE ==
[2023-09-15 14:29] LABS: #Basophils Less than 0.03 10x3/uL (0.0-0.2); #Eosinphils Less than 0.03 10x3/uL (0.0-0.7); %Basophils 0.1 % (0.0-1.0); %Eosinophils 0.1 % (0.0-10.0); %Lymphocytes 12.3 % (21.0-51.0); %Monocytes 5.3 % (0.0-10.0); %Neutrophils 81.7 % (42.0-75.0); Hematocrit 33.9 % (42.0-52.0); Hemoglobin 11.1 g/dL (14.0-18.0); Mean Corpuscular HGB CONC 32.7 g/dL (32.0-36.0); Mean Corpuscular Volume 76.4 fL (78.0-98.0); Mean Platelet Volume 9.7 fL (7.4-10.4); Platelet Count 164 10x3/uL (130-400); RBC Distribution Width 17.4 % (11.5-14.5); Red Blood Cell (RBC) Count 4.44 mill/uL (4.70-6.10)
[2023-09-15 14:44] LABS: ALT (SGPT) 19 U/L (8-55); AST (SGOT) 12 U/L (5-34); Albumin 3.2 g/dL (3.4-4.8); Alkaline Phosphatase 66 U/L (40-110); Anion Gap 23 mmol/L (10-20); BUN (Urea Nitrogen) 96 mg/dL (8.4-25.7); Bilirubin, Total 0.4 mg/dL (0.2-1.2); CK (CPK) 83 U/L (30-200); Calc. Creatinine Clearance 0 mL/min (70-130); Calcium 9.5 mg/dL (7.8-10.44); Carbon Dioxide 23 mmol/L (23-31); Chloride 91 mmol/L (98-107); Estimated GFR 7; Globulin 3.7 g/dL (2.4-3.5); Glucose 277 mg/dL (80-115); Potassium 4.2 mmol/L (3.5-5.1); Protein, Total 6.9 g/dL (5.8-8.1); Sodium 133 mmol/L (136-145)
[2023-09-15 16:07] LABS: Bilirubin Negative (Negative); Blood, Urine Negative (Negative); CAUTI Indications for Culture Dysuria,urgency,freq; Clarity Turbid (Clear); Glucose, Urine (Dipstick) 50 mg/dL (Negative); Ketone, Urine Negative (Negative); Leukocyte 25 Leu/uL (Negative); Nitrite Negative (Negative); Protein, Urine (Dipstick) 30 mg/dL (Neg-Trace); RBC/HPF 0-3 HPF (0-3); Specific Gravity, Urine 1.018 (1.002-1.036); Squamous Epithelial 0-3 HPF (0-3); Urobilinogen Normal mg/dL (Less than 2)
[2023-09-15 16:08] LABS: Bacteria/HPF 1+ HPF (None Seen)
[2023-09-15 16:11] LABS: Urine Culture Reflex No No
[2023-09-15] MEDS ORDERED: Calcium Carbonate 500 MG ChewTAB PO PRN (17:02)
[2023-09-15] MEDS: Sodium Chloride 0.9% 1,000 ML IV SCH (18:27)
[2023-09-15] MEDS: Acetaminophen 325 MG TAB PO SCH (18:28)
[2023-09-15 18:32] VITALS: BMI 28.3
[2023-09-15] MEDS ORDERED: Glucagon 1 MG/ML KIT IM PRN (18:46)
[2023-09-15] MEDS ORDERED: HumaLOG 300 UNITS/3 ML VIAL SC PRN ×2 (18:46)
[2023-09-15] MEDS ORDERED: Dextrose 50% Abboject 50 ML SYRINGE SLOW IVP PRN (18:46)
[2023-09-15] MEDS ORDERED: Dextrose 5% in Water 1,000 ML IV PRN (18:46)
[2023-09-15] MEDS ORDERED: Insulin Regular, Human 100 UNIT/ML 10 ML VIAL SC PRN ×2 (19:00)
[2023-09-15] MEDS: Atorvastatin Calcium 40 MG TAB PO SCH (21:08)
[2023-09-16] MEDS: Senokot S 8.6-50 MG TAB PO PRN (04:00)
[2023-09-16] MEDS: Famotidine 20 MG TAB PO SCH (04:34)
[2023-09-16] MEDS: Ondansetron PF 4 MG/2 ML Vial IVP PRN (04:34)
[2023-09-16 05:27] LABS: #Basophils Less than 0.03 10x3/uL (0.0-0.2); %Basophils 0.2 % (0.0-1.0); %Eosinophils 0.4 % (0.0-10.0); %Lymphocytes 18.6 % (21.0-51.0); %Neutrophils 74.4 % (42.0-75.0); Hematocrit 36.3 % (42.0-52.0); Hemoglobin 11.8 g/dL (14.0-18.0); Mean Corpuscular HGB CONC 32.5 g/dL (32.0-36.0); Mean Corpuscular Hemoglobin 25.3 pg (27.0-31.0); Mean Corpuscular Volume 77.7 fL (78.0-98.0); Platelet Count 177 10x3/uL (130-400); RBC Distribution Width 17.8 % (11.5-14.5); Red Blood Cell (RBC) Count 4.67 mill/uL (4.70-6.10)
[2023-09-16 05:31] LABS: Bacteria/HPF None Seen HPF (None Seen); Bilirubin Negative (Negative); Blood, Urine 3+ (Negative); CAUTI Indications for Culture Acute Hematuria; Clarity Extra Turbid (Clear); Glucose, Urine (Dipstick) 30 mg/dL (Negative); Ketone, Urine Negative (Negative); Leukocyte 75 Leu/uL (Negative); Nitrite Negative (Negative); Protein, Urine (Dipstick) 300 mg/dL (Neg-Trace); RBC/HPF Greater than 50 HPF (0-3); Specific Gravity, Urine 1.018 (1.002-1.036); Squamous Epithelial None Seen HPF (0-3); Urobilinogen Normal mg/dL (Less than 2); WBC/HPF 21-50 HPF (0-3)
[2023-09-16 05:32] LABS: Urine Culture Reflex Yes Yes
[2023-09-16 06:02] LABS: Anion Gap 20 mmol/L (10-20); BUN (Urea Nitrogen) 87 mg/dL (8.4-25.7); Calc. Creatinine Clearance 19 mL/min (70-130); Calcium 9.5 mg/dL (7.8-10.44); Carbon Dioxide 25 mmol/L (23-31); Chloride 97 mmol/L (98-107); Estimated GFR 13; Glucose 187 mg/dL (80-115); Potassium 4.1 mmol/L (3.5-5.1); Sodium 138 mmol/L (136-145)
[2023-09-16 06:07] LABS: ALT (SGPT) 13 U/L (8-55); AST (SGOT) 15 U/L (5-34); Albumin 3.2 g/dL (3.4-4.8); Alkaline Phosphatase 72 U/L (40-110); Anion Gap 21 mmol/L (10-20); BUN (Urea Nitrogen) 86 mg/dL (8.4-25.7); Bilirubin, Total 0.4 mg/dL (0.2-1.2); Calc. Creatinine Clearance 19 mL/min (70-130); Calcium 9.5 mg/dL (7.8-10.44); Carbon Dioxide 24 mmol/L (23-31); Chloride 97 mmol/L (98-107); Estimated GFR 13; Globulin 3.6 g/dL (2.4-3.5); Glucose 190 mg/dL (80-115); Magnesium 2.1 mg/dL (1.6-2.6); Phosphorus 5.1 mg/dL (2.3-4.7); Protein, Total 6.8 g/dL (5.8-8.1); Sodium 138 mmol/L (136-145)
[2023-09-16] MEDS: ALPRAZolam 0.5 MG TAB PO PRN (08:44)
[2023-09-16] MEDS: Escitalopram Oxalate 20 mg Tablet PO SCH (09:00)
[2023-09-16] MEDS: Aspirin 81 mg Enteric Coated Tablet PO SCH (09:00)
[2023-09-16] MEDS: cefTRIAXone\\ROCEPHIN 2 GM in Sodium Chloride 0.9% 100 ML IVPB SCH (10:35)
[2023-09-16 13:17] VITALS: BMI 28.4
[2023-09-17 07:26] LABS: Anion Gap 15 mmol/L (10-20); BUN (Urea Nitrogen) 60 mg/dL (8.4-25.7); Calc. Creatinine Clearance 42 mL/min (70-130); Calcium 9.1 mg/dL (7.8-10.44); Carbon Dioxide 25 mmol/L (23-31); Chloride 104 mmol/L (98-107); Estimated GFR 33; Glucose 190 mg/dL (80-115); Magnesium 1.9 mg/dL (1.6-2.6); Potassium 4.2 mmol/L (3.5-5.1); Sodium 140 mmol/L (136-145)
[2023-09-17] MEDS: cefTRIAXone\\ROCEPHIN 1 GM in Sodium Chloride 0.9% 100 ML IVPB SCH (08:57)
[2023-09-17] MEDS: Sodium Chloride 0.9% 1,000 ML IV SCH (09:02)
[2023-09-17] MEDS: Nebivolol HCl 5 MG TAB PO SCH (17:04)
[2023-09-17] MEDS: Albumin 25% 25 GM (100 mL) BOT IVPB SCH (17:04)
[2023-09-17] MEDS: Insulin Lispro 100 UNIT/ML 10 ML VIAL SC PRN ×2 (18:15→20:46)
[2023-09-17 18:55] LABS: Anion Gap 17 mmol/L (10-20); BUN (Urea Nitrogen) 47 mg/dL (8.4-25.7); Calc. Creatinine Clearance 50 mL/min (70-130); Calcium 8.9 mg/dL (7.8-10.44); Carbon Dioxide 23 mmol/L (23-31); Chloride 104 mmol/L (98-107); Estimated GFR 40; Glucose 262 mg/dL (80-115); Magnesium 1.8 mg/dL (1.6-2.6); Sodium 140 mmol/L (136-145)
[2023-09-17] MEDS: Amlodipine 5 MG TAB PO SCH (20:46)
[2023-09-17] MEDS ORDERED: Nebivolol HCl 5 MG TAB PO SCH (21:00)
[2023-09-18 06:16] LABS: #Basophils Less than 0.03 10x3/uL (0.0-0.2); %Basophils 0.3 % (0.0-1.0); %Eosinophils 0.6 % (0.0-10.0); %Lymphocytes 28.7 % (21.0-51.0); %Monocytes 9.7 % (0.0-10.0); %Neutrophils 60.4 % (42.0-75.0); Hematocrit 30.9 % (42.0-52.0); Hemoglobin 9.5 g/dL (14.0-18.0); Mean Corpuscular HGB CONC 30.7 g/dL (32.0-36.0); Mean Corpuscular Hemoglobin 24.5 pg (27.0-31.0); Mean Corpuscular Volume 79.8 fL (78.0-98.0); Mean Platelet Volume 10.3 fL (7.4-10.4); Platelet Count 118 10x3/uL (130-400); Red Blood Cell (RBC) Count 3.87 mill/uL (4.70-6.10)
[2023-09-18 06:25] LABS: Anion Gap 16 mmol/L (10-20); BUN (Urea Nitrogen) 47 mg/dL (8.4-25.7); Calc. Creatinine Clearance 48 mL/min (70-130); Calcium 9.1 mg/dL (7.8-10.44); Carbon Dioxide 23 mmol/L (23-31); Chloride 104 mmol/L (98-107); Estimated GFR 38; Glucose 216 mg/dL (80-115); Magnesium 1.7 mg/dL (1.6-2.6); Potassium 3.9 mmol/L (3.5-5.1); Sodium 139 mmol/L (136-145)
[2023-09-18 06:49] LABS: Anisocytosis SLIGHT = 6-15 cells HPF (0-5); Hypochromia SLIGHT = 6-15 cells HPF (0-5); Platelet Adequacy Comment Platelets Decreased
[2023-09-18 08:08] VITALS: BP 109/75; TEMP 98
[2023-09-18] MEDS: Insulin Glargine 30 UNITS/0.3 ML VIAL SC SCH (09:29)
[2023-09-18] MEDS: Sodium Chloride 0.9% 1,000 ML IV SCH (09:30)
[2023-09-18] MEDS: Magnesium 2 GM/50 ML(in water) 2 GM in Premix 1 BAG IVPB SCH (09:31)
[2023-09-18] MEDS ORDERED: Albumin 25% 25 GM (100 mL) BOT IVPB SCH (18:00)
[2023-09-18] MEDS ORDERED: Insulin Glargine 30 UNITS/0.3 ML VIAL SC SCH (21:00)
[2023-09-18] MEDS ORDERED: Nebivolol HCl 5 MG TAB PO SCH (21:00)
== END 2023-09-18 14:37 | disposition home or self-care (01) | DRG 683 ==
LOC: SUATTDRO 13:22 → ERS 13:22 → T4-A 17:09
PROVIDERS: ADMIT Internal Medicine; ATTEND Internal Medicine
PROC: 30233J1 Transfusion of Nonautologous Serum Albumin into Peripheral Vein, Percutaneous Approach (ICD-10-PCS; principal; 2023-09-17)
DX: N17.9 Acute kidney failure, unspecified (principal); C18.2 Malignant neoplasm of ascending colon; C19 Malignant neoplasm of rectosigmoid junction; E87.1 Hypo-osmolality and hyponatremia; K56.609 Unspecified intestinal obstruction, unspecified as to partial versus complete obstruction; E78.5 Hyperlipidemia, unspecified; E11.9 Type 2 diabetes mellitus without complications; I10 Essential (primary) hypertension; M19.90 Unspecified osteoarthritis, unspecified site; D63.8 Anemia in other chronic diseases classified elsewhere; Z79.899 Other long term (current) drug therapy; Z92.21 Personal history of antineoplastic chemotherapy
CPT/HCPCS: 36415; 36416; 76770; 80048; 80053; 81001; 82550; 83735; 83880; 84100; 85025; 87086; 96360; J0696; J1815; J2405; J3475; J3490; J7050; P9047

== ENCOUNTER 2023-09-24 12:18 | Inpatient (IN) | payer MEDICARE ==
[2023-09-24 13:21] VITALS: BMI 28.3
[2023-09-24] MEDS ORDERED: Ondansetron PF 4 MG/2 ML Vial IVP PRN ×2 (13:40→20:34)
[2023-09-24] MEDS ORDERED: Dextrose 50% Abboject 50 ML SYRINGE SLOW IVP PRN (13:40)
[2023-09-24] MEDS ORDERED: Dextrose 5% in Water 1,000 ML IV PRN (13:40)
[2023-09-24] MEDS ORDERED: Morphine 4 MG/ML VIAL SLOW IVP PRN (13:40)
[2023-09-24] MEDS ORDERED: hydrALAZINE 20 MG/ML VIAL SLOW IVP PRN (13:40)
[2023-09-24] MEDS ORDERED: HumaLOG 300 UNITS/3 ML VIAL SC PRN (13:40)
[2023-09-24] MEDS ORDERED: Glucagon 1 MG/ML KIT IM PRN (13:40)
[2023-09-24] MEDS ORDERED: ALPRAZolam 0.5 MG TAB PO PRN (13:44)
[2023-09-24] MEDS ORDERED: Insulin Lispro 100 UNIT/ML 10 ML VIAL SC PRN (14:00)
[2023-09-24 14:18] LABS: #Basophils Less than 0.03 10x3/uL (0.0-0.2); #Eosinphils Less than 0.03 10x3/uL (0.0-0.7); %Basophils 0.1 % (0.0-1.0); %Eosinophils 0.2 % (0.0-10.0); %Lymphocytes 16.2 % (21.0-51.0); %Neutrophils 80.2 % (42.0-75.0); Hemoglobin 11.9 g/dL (14.0-18.0); Mean Corpuscular HGB CONC 31.3 g/dL (32.0-36.0); Mean Corpuscular Hemoglobin 24.6 pg (27.0-31.0); Mean Corpuscular Volume 78.7 fL (78.0-98.0); Mean Platelet Volume 9.7 fL (7.4-10.4); Platelet Count 267 10x3/uL (130-400); RBC Distribution Width 18.9 % (11.5-14.5); Red Blood Cell (RBC) Count 4.83 mill/uL (4.70-6.10)
[2023-09-24] MEDS: Lactated Ringer's 1,000 ML IV SCH ×2 (14:34→14:39)
[2023-09-24 14:43] LABS: Anion Gap 17 mmol/L (10-20); BUN (Urea Nitrogen) 26 mg/dL (8.4-25.7); Calc. Creatinine Clearance 55 mL/min (70-130); Calcium 9.8 mg/dL (7.8-10.44); Carbon Dioxide 31 mmol/L (23-31); Chloride 93 mmol/L (98-107); Estimated GFR 46; Glucose 228 mg/dL (83-110); Sodium 137 mmol/L (136-145)
[2023-09-24] MEDS: Pantoprazole 40 MG VIAL IVP SCH (14:55)
[2023-09-24] MEDS ORDERED: Bupivacaine PF 0.5% 30 ML VIAL ONE (15:41)
[2023-09-24] MEDS ORDERED: EPINEPHrine 1 MG/ML VIAL ONE (15:41)
[2023-09-24] MEDS ORDERED: Piperacillin/Tazobactam 3.375 GM VIAL ONE (16:56)
[2023-09-24] MEDS ORDERED: Sodium Chloride 0.9% 100 ML ONE (16:56)
[2023-09-24] MEDS ORDERED: fentaNYL PF 100 MCG/2 ML SYRINGE ONE ×2 (17:11→19:25)
[2023-09-24] MEDS ORDERED: SUCCINYLCHOLINE/SOD CL,ISO/PF 200 MG/10 ML SYRINGE FS ONE (17:21)
[2023-09-24] MEDS ORDERED: Ondansetron PF 4 MG/2 ML Vial ONE (17:51)
[2023-09-24] MEDS ORDERED: Rocuronium Bromide 10 MG/ML (10ML VIAL) ONE (19:26)
[2023-09-24] MEDS ORDERED: Albumin 5% 500 ML ONE (19:56)
[2023-09-24] MEDS ORDERED: PHENYLEPHRINE-NS 100 MCG/ML 10 ML SYRINGE ONE (20:03)
[2023-09-24] MEDS ORDERED: SUGAMMADEX SODIUM 200 MG/2 ML VIAL ONE (20:25)
[2023-09-24] MEDS ORDERED: diphenhydrAMINE 50 MG/ML VIAL IM PRN (20:34)
[2023-09-24] MEDS ORDERED: Naloxone HCl 0.4 mg/ml Vial IV PRN (20:34)
[2023-09-24] MEDS ORDERED: diphenhydrAMINE 25 MG CAP PO PRN (20:34)
[2023-09-24] MEDS ORDERED: diphenhydrAMINE 50 MG/ML VIAL IVP PRN (20:34)
[2023-09-24] MEDS ORDERED: Promethazine HCl 25 MG/ML VIAL IM PRN ×2 (20:34)
[2023-09-24] MEDS ORDERED: Ondansetron HCl/PF 4 MG/2 ML Vial IVP PRN (20:34)
[2023-09-24] MEDS ORDERED: FENTANYL 500 MCG/10 ML VIAL 2,000 MCG in Sodium Chloride 0.9% 60 ML IV PRN (20:34)
[2023-09-24] MEDS ORDERED: Communication Order-Pharmacy FS SCH (20:45)
[2023-09-24 21:08] LABS: #Basophils Less than 0.03 10x3/uL (0.0-0.2); #Eosinphils Less than 0.03 10x3/uL (0.0-0.7); %Basophils 0.1 % (0.0-1.0); %Lymphocytes 5.5 % (21.0-51.0); %Monocytes 2.6 % (0.0-10.0); %Neutrophils 91.3 % (42.0-75.0); Hematocrit 29.4 % (42.0-52.0); Hemoglobin 9.2 g/dL (14.0-18.0); Mean Corpuscular HGB CONC 31.3 g/dL (32.0-36.0); Mean Corpuscular Hemoglobin 25.1 pg (27.0-31.0); Mean Corpuscular Volume 80.3 fL (78.0-98.0); Mean Platelet Volume 10.4 fL (7.4-10.4); Platelet Count 287 10x3/uL (130-400); RBC Distribution Width 18.5 % (11.5-14.5); Red Blood Cell (RBC) Count 3.66 mill/uL (4.70-6.10)
[2023-09-24] MEDS: Enoxaparin 40 MG (0.4 mL) SYRINGE SC SCH (22:28)
[2023-09-25 06:56] LABS: #Basophils Less than 0.03 10x3/uL (0.0-0.2); #Eosinphils Less than 0.03 10x3/uL (0.0-0.7); %Basophils 0.1 % (0.0-1.0); %Lymphocytes 12.9 % (21.0-51.0); %Monocytes 6.9 % (0.0-10.0); %Neutrophils 79.7 % (42.0-75.0); Hematocrit 26.1 % (42.0-52.0); Hemoglobin 8.1 g/dL (14.0-18.0); Mean Corpuscular Hemoglobin 25.4 pg (27.0-31.0); Mean Corpuscular Volume 81.8 fL (78.0-98.0); Mean Platelet Volume 10.1 fL (7.4-10.4); Platelet Count 189 10x3/uL (130-400); RBC Distribution Width 18.5 % (11.5-14.5); Red Blood Cell (RBC) Count 3.19 mill/uL (4.70-6.10)
[2023-09-25 07:26] LABS: ALT (SGPT) 17 U/L (8-55); AST (SGOT) 17 U/L (5-34); Albumin 3.2 g/dL (3.4-4.8); Alkaline Phosphatase 43 U/L (40-110); Anion Gap 14 mmol/L (10-20); BUN (Urea Nitrogen) 27 mg/dL (8.4-25.7); Bilirubin, Total 0.4 mg/dL (0.2-1.2); Calc. Creatinine Clearance 57 mL/min (70-130); Carbon Dioxide 29 mmol/L (23-31); Chloride 102 mmol/L (98-107); Estimated GFR 48; Globulin 2.1 g/dL (2.4-3.5); Glucose 219 mg/dL (83-110); Potassium 4.3 mmol/L (3.5-5.1); Protein, Total 5.3 g/dL (5.8-8.1); Sodium 141 mmol/L (136-145)
[2023-09-25] MEDS: Pantoprazole 40 MG VIAL IVP SCH (08:56)
[2023-09-25] MEDS: Escitalopram Oxalate 20 mg Tablet PO SCH (08:56)
[2023-09-25] MEDS: Tamsulosin HCl 0.4 MG CAP PO SCH ×2 (16:16→21:25)
[2023-09-26 09:52] VITALS: BMI 28.3
[2023-09-26 19:30] LABS: #Basophils Less than 0.03 10x3/uL (0.0-0.2); #Eosinphils Less than 0.03 10x3/uL (0.0-0.7); %Basophils 0.1 % (0.0-1.0); %Eosinophils 0.1 % (0.0-10.0); %Lymphocytes 17.6 % (21.0-51.0); %Monocytes 5.3 % (0.0-10.0); %Neutrophils 76.6 % (42.0-75.0); Hematocrit 24.8 % (42.0-52.0); Hemoglobin 7.8 g/dL (14.0-18.0); Mean Corpuscular HGB CONC 31.5 g/dL (32.0-36.0); Mean Corpuscular Hemoglobin 25.9 pg (27.0-31.0); Mean Corpuscular Volume 82.4 fL (78.0-98.0); Mean Platelet Volume 10.5 fL (7.4-10.4); Platelet Count 158 10x3/uL (130-400); RBC Distribution Width 18.3 % (11.5-14.5); Red Blood Cell (RBC) Count 3.01 mill/uL (4.70-6.10)
[2023-09-27 05:27] LABS: #Basophils Less than 0.03 10x3/uL (0.0-0.2); #Eosinphils Less than 0.03 10x3/uL (0.0-0.7); %Basophils 0.1 % (0.0-1.0); %Eosinophils 0.1 % (0.0-10.0); %Lymphocytes 12.6 % (21.0-51.0); %Monocytes 4.9 % (0.0-10.0); %Neutrophils 81.8 % (42.0-75.0); Hematocrit 25.2 % (42.0-52.0); Mean Corpuscular HGB CONC 31.7 g/dL (32.0-36.0); Mean Corpuscular Hemoglobin 26.3 pg (27.0-31.0); Mean Corpuscular Volume 82.9 fL (78.0-98.0); Mean Platelet Volume 10.5 fL (7.4-10.4); Platelet Count 156 10x3/uL (130-400); RBC Distribution Width 18.4 % (11.5-14.5); Red Blood Cell (RBC) Count 3.04 mill/uL (4.70-6.10)
[2023-09-27 05:41] LABS: Anion Gap 11 mmol/L (10-20); BUN (Urea Nitrogen) 21 mg/dL (8.4-25.7); Calc. Creatinine Clearance 72 mL/min (70-130); Carbon Dioxide 26 mmol/L (23-31); Chloride 105 mmol/L (98-107); Estimated GFR 63; Glucose 189 mg/dL (83-110); Potassium 3.4 mmol/L (3.5-5.1); Sodium 139 mmol/L (136-145)
[2023-09-27] MEDS ORDERED: Lactated Ringer's 1,000 ML IV SCH (08:19)
[2023-09-27] MEDS: Furosemide 40 MG (4 mL) VIAL SLOW IVP SCH (09:38)
[2023-09-27] MEDS: Potassium Chloride 20 MEQ TAB PO SCH ×2 (11:37→17:20)
[2023-09-27] MEDS ORDERED: Simethicone Chewable 80 MG TAB PO PRN (16:43)
[2023-09-27] MEDS: Simethicone Chewable 80 MG TAB PO SCH (17:20)
[2023-09-27] MEDS: Nebivolol HCl 5 MG TAB PO SCH (20:04)
[2023-09-27] MEDS: Lactated Ringer's 1,000 ML IV SCH (20:07)
[2023-09-28 05:52] LABS: #Basophils Less than 0.03 10x3/uL (0.0-0.2); %Basophils 0.1 % (0.0-1.0); %Eosinophils 0.3 % (0.0-10.0); %Lymphocytes 15.7 % (21.0-51.0); %Monocytes 5.2 % (0.0-10.0); %Neutrophils 78.2 % (42.0-75.0); Hemoglobin 8.2 g/dL (14.0-18.0); Mean Corpuscular HGB CONC 31.5 g/dL (32.0-36.0); Mean Corpuscular Hemoglobin 25.9 pg (27.0-31.0); Mean Corpuscular Volume 82.3 fL (78.0-98.0); Mean Platelet Volume 10.9 fL (7.4-10.4); Platelet Count 171 10x3/uL (130-400); Red Blood Cell (RBC) Count 3.16 mill/uL (4.70-6.10)
[2023-09-28 06:07] LABS: Anion Gap 12 mmol/L (10-20); BUN (Urea Nitrogen) 17 mg/dL (8.4-25.7); Calc. Creatinine Clearance 71 mL/min (70-130); Calcium 8.1 mg/dL (7.8-10.44); Carbon Dioxide 26 mmol/L (23-31); Chloride 104 mmol/L (98-107); Estimated GFR 62; Glucose 167 mg/dL (83-110); Potassium 3.8 mmol/L (3.5-5.1); Sodium 138 mmol/L (136-145)
[2023-09-28] MEDS ORDERED: traMADol HCl 50 MG TAB PO PRN ×2 (07:46→09:19)
[2023-09-28] MEDS: Potassium Chloride 20 MEQ TAB PO SCH (10:28)
[2023-09-28] MEDS: Enoxaparin 40 MG (0.4 mL) SYRINGE SC SCH (10:28)
[2023-09-28] MEDS: Furosemide 40 MG (4 mL) VIAL SLOW IVP SCH (10:29)
[2023-09-28] MEDS: Acetaminophen 325 MG TAB PO SCH (10:46)
[2023-09-28] MEDS ORDERED: traMADol HCl 50 MG TAB PO SCH (12:00)
[2023-09-28] MEDS: Acetaminophen 500 MG TAB PO SCH (13:11)
[2023-09-29 05:39] LABS: #Basophils Less than 0.03 10x3/uL (0.0-0.2); %Basophils 0.1 % (0.0-1.0); %Eosinophils 2.2 % (0.0-10.0); %Lymphocytes 15.7 % (21.0-51.0); %Monocytes 4.9 % (0.0-10.0); %Neutrophils 76.9 % (42.0-75.0); Hematocrit 25.4 % (42.0-52.0); Hemoglobin 7.9 g/dL (14.0-18.0); Mean Corpuscular HGB CONC 31.1 g/dL (32.0-36.0); Mean Corpuscular Volume 83.6 fL (78.0-98.0); Mean Platelet Volume 11.1 fL (7.4-10.4); Platelet Count 192 10x3/uL (130-400); Red Blood Cell (RBC) Count 3.04 mill/uL (4.70-6.10)
[2023-09-29 06:10] LABS: Anion Gap 12 mmol/L (10-20); BUN (Urea Nitrogen) 18 mg/dL (8.4-25.7); Calc. Creatinine Clearance 83 mL/min (70-130); Calcium 8.2 mg/dL (7.8-10.44); Carbon Dioxide 27 mmol/L (23-31); Chloride 102 mmol/L (98-107); Estimated GFR 75; Glucose 162 mg/dL (83-110); Potassium 3.6 mmol/L (3.5-5.1); Sodium 137 mmol/L (136-145)
[2023-09-29] MEDS: Polyethylene Glycol 3350 17 GM Packet PO SCH (09:07)
[2023-09-29] MEDS: Pantoprazole DR 40 MG TAB PO SCH (09:07)
[2023-09-30 11:44] LABS: Hemoglobin 7.8 g/dL (14.0-18.0); Mean Corpuscular HGB CONC 31.2 g/dL (32.0-36.0); Mean Corpuscular Hemoglobin 26.1 pg (27.0-31.0); Mean Corpuscular Volume 83.6 fL (78.0-98.0); Mean Platelet Volume 10.9 fL (7.4-10.4); Platelet Count 217 10x3/uL (130-400); Red Blood Cell (RBC) Count 2.99 mill/uL (4.70-6.10)
[2023-10-01 08:05] VITALS: BP 157/78; TEMP 99.2
== END 2023-10-01 15:26 | disposition home or self-care (01) | DRG 329 ==
LOC: MSONC 12:36
PROVIDERS: ADMIT Student in an Organized Health Care Education/Training Program; ATTEND Student in an Organized Health Care Education/Training Program
PROC: 0DB80ZZ Excision of Small Intestine, Open Approach (ICD-10-PCS; principal; 2023-09-24)
PROC: 0DN80ZZ Release Small Intestine, Open Approach (ICD-10-PCS; 2023-09-24)
PROC: 0DBW4ZX Excision of Peritoneum, Percutaneous Endoscopic Approach, Diagnostic (ICD-10-PCS; 2023-09-24)
PROC: 0D9670Z Drainage of Stomach with Drainage Device, Via Natural or Artificial Opening (ICD-10-PCS; 2023-09-24)
PROC: 3E033XZ Introduction of Vasopressor into Peripheral Vein, Percutaneous Approach (ICD-10-PCS; 2023-09-24)
PROC: 30233J1 Transfusion of Nonautologous Serum Albumin into Peripheral Vein, Percutaneous Approach (ICD-10-PCS; 2023-09-24)
PROC: 30233N1 Transfusion of Nonautologous Red Blood Cells into Peripheral Vein, Percutaneous Approach (ICD-10-PCS; 2023-09-26)
DX: C78.5 Secondary malignant neoplasm of large intestine and rectum (principal); J96.01 Acute respiratory failure with hypoxia; C18.9 Malignant neoplasm of colon, unspecified; K56.600 Partial intestinal obstruction, unspecified as to cause; N17.9 Acute kidney failure, unspecified; Z66 Do not resuscitate; I27.20 Pulmonary hypertension, unspecified; I11.0 Hypertensive heart disease with heart failure; G89.18 Other acute postprocedural pain; I50.9 Heart failure, unspecified; I95.1 Orthostatic hypotension; E11.9 Type 2 diabetes mellitus without complications; D64.9 Anemia, unspecified; Z96.653 Presence of artificial knee joint, bilateral; Z98.890 Other specified postprocedural states; Z98.49 Cataract extraction status, unspecified eye
CPT/HCPCS: 36415; 36416; 36430; 71045; 80048; 80053; 82378; 83880; 85025; 85027; 86850; 86900; 86901; 88305; 88309; 88341; 88342; 93005; 93010; 93306; A4314; A4649; C1751; C1889; C9113; J0171; J0665; J1642; J1650; J1815; J1940; J2405; J2543; J3490; J7120; P9016; P9045